=== PATIENT | female | born 1945 | race Two or more races ===

== ENCOUNTER 2022-04-07 15:02 | Emergency (ER) | payer OTHER ==
[2022-04-07 16:11] VITALS: TEMP 98; BMI 25.4
[2022-04-07] MEDS ORDERED: ACETAMINOPHEN 500 MG TABLET (FP) PO ONE (16:53)
[2022-04-07] MEDS: ALBUTEROL SO4 2.5/IPRATROPIUM 0.5 INH SOL 3 ML VIAL.NEB. NEB SCH ×3 (17:15→18:06)
[2022-04-07] MEDS ORDERED: ALBUTEROL SO4 2.5/IPRATROPIUM 0.5 INH SOL 3 ML VIAL.NEB. NEB ONE (17:33)
[2022-04-07 17:38] LABS: HEMATOCRIT 35.4 % (32.4-45.2); HEMOGLOBIN 11.6 GM/dL (10.7-15.3); MCH 22.9 pg (25.7-33.7); MCHC 32.7 g/dl (32.0-36.0); MEAN CELL VOLUME 69.9 fl (80-96); MEAN PLT VOLUME 8.5 fl (7.5-11.1); PLATELET COUNT 251 10^3/uL (134-434); RBC 5.06 M/mm3 (3.60-5.2); RDW 17.2 % (11.6-15.6); WHITE BLOOD COUNT 5.4 K/mm3 (4.0-10.0)
[2022-04-07] MEDS ORDERED: ACETAMINOPHEN 500 MG TABLET (FP) ONE (17:38)
[2022-04-07 17:43] LABS: EPI CELLS 17 /uL (0-25.1); HYALINE CASTS 1 /uL (0-3.1); PH,URINE 5.5 (5.0-8.0); URINE APPEARANCE CLEAR; URINE BACTERIA >9,000 /uL (0-1359); URINE BILIRUBIN NEGATIVE (NEGATIVE); URINE COLOR YELLOW; URINE GLUCOSE (UA) NEGATIVE (NEGATIVE); URINE KETONE TRACE (NEGATIVE); URINE LEUK ESTERASE 1+ (NEGATIVE); URINE NITRITE POSITIVE (NEGATIVE); URINE PROTEIN NEGATIVE (NEGATIVE); URINE RBC 16 /uL (0-23.9); URINE UROBILINOGEN 0.2 mg/dL (0.2-1.0); URINE WBC 34 /uL (0-25.8)
[2022-04-07 18:00] LABS: CALCIUM 8.7 mg/dL (8.5-10.1)
[2022-04-07 18:01] LABS: ALBUMIN 3.4 g/dl (3.4-5.0); BLOOD UREA NITROGEN 12.3 mg/dL (7-18); MAGNESIUM 2.4 mg/dL (1.8-2.4)
[2022-04-07 18:04] LABS: CREATININE 0.5 mg/dL (0.55-1.3)
[2022-04-07 18:05] LABS: BILIRUBIN,TOTAL 0.2 mg/dL (0.2-1); TOT PROT 7.1 g/dl (6.4-8.2)
[2022-04-07] MEDS ORDERED: CEFTRIAXONE 1,000 MG in DEXTROSE 5%-WATER - 50 ML IVPB ONE (18:32)
[2022-04-07] MEDS ORDERED: CEFTRIAXONE 1 GM/50 ML BAG ONE (19:08)
[2022-04-07 19:49] VITALS: BP 113/52; PULSE 92
== END 2022-04-07 20:52 | disposition home or self-care (01) ==
LOC: JER 15:02
PROC: 3E0F7GC Introduction of Other Therapeutic Substance into Respiratory Tract, Via Natural or Artificial Opening (ICD-10-PCS; principal; 2022-04-07)
PROC: 3E03329 Introduction of Other Anti-infective into Peripheral Vein, Percutaneous Approach (ICD-10-PCS; 2022-04-07)
DX: J45.901 Unspecified asthma with (acute) exacerbation (principal); N30.90 Cystitis, unspecified without hematuria; N39.0 Urinary tract infection, site not specified
CPT/HCPCS: 0241U-QW; 36415; 71045-TC-FY; 74177-TC; 80053; 81003; 83605; 83690; 83735; 84484; 85027; 87086; 87186; 93005; 93010; 99285-25; Q9967

== ENCOUNTER 2022-08-21 16:15 | Inpatient (IN) | payer OTHER ==
[2022-08-21 16:32] VITALS: BMI 27.3
[2022-08-21] MEDS ORDERED: ALBUTEROL SO4 2.5/IPRATROPIUM 0.5 INH SOL 3 ML VIAL.NEB. NEB ONE (17:21)
[2022-08-21] MEDS ORDERED: DEXAMETHASONE SOD PHOSPHATE 10 MG/1 ML VIAL IVPUSH ONE (17:30)
[2022-08-21] MEDS ORDERED: DEXAMETHASONE SOD PHOSPHATE 10 MG/1 ML VIAL ONE (17:51)
[2022-08-21 18:10] LABS: BASO % 1.2 % (0-2.0); EOS % 13.7 % (0-4.5); HEMATOCRIT 34.5 % (32.4-45.2); LYMPH % 49.5 % (8-40); MCH 22.3 pg (25.7-33.7); MCHC 31.9 g/dl (32.0-36.0); MEAN CELL VOLUME 69.9 fl (80-96); MEAN PLT VOLUME 8.3 fl (7.5-11.1); MONO % 7.6 % (3.8-10.2); PLATELET COUNT 252 10^3/uL (134-434); RBC 4.93 M/mm3 (3.60-5.2); RDW 16.5 % (11.6-15.6); WHITE BLOOD COUNT 5.8 K/mm3 (4.0-10.0)
[2022-08-21] MEDS ORDERED: ALBUTEROL SO4 0.083% IH SOL 2.5 MG/3 ML VIAL.NEB. NEB ONE ×2 (18:22→18:31)
[2022-08-21 19:06] LABS: ACTIVATED PTT 31.8 SECONDS (25.2-36.5); INR 1.2 (0.83-1.09); PROTHROMBIN TIME (PATIENT) 13.8 SEC (9.7-13.0)
[2022-08-21 19:34] LABS: CALCIUM 9.2 mg/dL (8.5-10.1)
[2022-08-21 19:35] LABS: ALBUMIN 3.7 g/dl (3.4-5.0); BLOOD UREA NITROGEN 11.7 mg/dL (7-18)
[2022-08-21 19:38] LABS: CREATININE 0.7 mg/dL (0.55-1.3)
[2022-08-21 19:39] LABS: TOT PROT 7.2 g/dl (6.4-8.2)
[2022-08-21 19:40] LABS: BILIRUBIN,TOTAL 0.2 mg/dL (0.2-1)
[2022-08-21] MEDS ORDERED: DOCUSATE SODIUM 100 MG CAPSULE (FP) PO PRN (23:54)
[2022-08-21] MEDS ORDERED: ACETAMINOPHEN 325 MG TABLET (FP) PO PRN (23:54)
[2022-08-22 05:05] LABS: MAGNESIUM 1.9 mg/dL (1.8-2.4)
[2022-08-22] MEDS ORDERED: ALBUTEROL SO4 HFA INHALER IH PRN (07:59)
[2022-08-22] MEDS ORDERED: ALBUTEROL SO4 0.083% IH SOL 2.5 MG/3 ML VIAL.NEB. NEB PRN (08:06)
[2022-08-22 08:10] LABS: BASO % 0.4 % (0-2.0); HEMATOCRIT 37.2 % (32.4-45.2); HEMOGLOBIN 11.4 GM/dL (10.7-15.3); LYMPH % 14.7 % (8-40); MCH 21.6 pg (25.7-33.7); MCHC 30.8 g/dl (32.0-36.0); MEAN CELL VOLUME 70.2 fl (80-96); MEAN PLT VOLUME 8.8 fl (7.5-11.1); MONO % 1.8 % (3.8-10.2); NEUT % 83.1 % (42.8-82.8); PLATELET COUNT 299 10^3/uL (134-434); RDW 16.3 % (11.6-15.6); WHITE BLOOD COUNT 5.7 K/mm3 (4.0-10.0)
[2022-08-22 09:08] LABS: CALCIUM 9.6 mg/dL (8.5-10.1); CREATININE 0.8 mg/dL (0.55-1.3)
[2022-08-22] MEDS ORDERED: ENOXAPARIN NA (PORCINE) 40 MG/0.4 ML DISP.SYRIN SQ SCH (10:00)
[2022-08-22] MEDS ORDERED: FLUTICASONE/UMECLIDIN/VILANTER(200-62.5-25 TRELEGY ELLIPTA) INAHLER IH SCH (10:00)
[2022-08-22 10:28] LABS: ANISOCYTOSIS 2+; MACROCYTOSIS 0
[2022-08-22] MEDS: methylPREDNISolone NA SUCC 40 MG/1 ML VIAL IVPUSH SCH ×2 (11:45→17:25)
[2022-08-22] MEDS: PANTOPRAZOLE SODIUM 40 MG VIAL IVPUSH SCH ×2 (11:45→22:33)
[2022-08-22] MEDS: SENNOSIDES/DOCUSATE COMBO (SENNA PLUS) TABLET (UD) PO SCH ×2 (11:45→22:33)
[2022-08-22] MEDS: OXYBUTYNIN CHLORIDE 5 MG TABLET PO SCH ×2 (11:45→22:33)
[2022-08-22] MEDS: ALBUTEROL SO4 2.5/IPRATROPIUM 0.5 INH SOL 3 ML VIAL.NEB. NEB SCH (20:32)
[2022-08-22] MEDS: MONTELUKAST NA 10 MG TABLET PO SCH (22:33)
[2022-08-22] MEDS: BUDESONIDE/FORMETEROL FUMARATE 160/4.5 mcg INHALER IH SCH (22:33)
[2022-08-23] MEDS: methylPREDNISolone NA SUCC 40 MG/1 ML VIAL IVPUSH SCH ×3 (02:00→17:53)
[2022-08-23] MEDS: ALBUTEROL SO4 2.5/IPRATROPIUM 0.5 INH SOL 3 ML VIAL.NEB. NEB SCH ×4 (08:14→20:00)
[2022-08-23] MEDS: SENNOSIDES/DOCUSATE COMBO (SENNA PLUS) TABLET (UD) PO SCH ×2 (09:31→21:33)
[2022-08-23] MEDS: OXYBUTYNIN CHLORIDE 5 MG TABLET PO SCH ×2 (09:31→21:33)
[2022-08-23] MEDS: PANTOPRAZOLE SODIUM 40 MG VIAL IVPUSH SCH ×2 (09:32→21:33)
[2022-08-23] MEDS: BUDESONIDE/FORMETEROL FUMARATE 160/4.5 mcg INHALER IH SCH ×2 (10:59→21:33)
[2022-08-23] MEDS: MONTELUKAST NA 10 MG TABLET PO SCH (21:33)
[2022-08-24] MEDS: methylPREDNISolone NA SUCC 40 MG/1 ML VIAL IVPUSH SCH (01:03)
[2022-08-24] MEDS: ALBUTEROL SO4 2.5/IPRATROPIUM 0.5 INH SOL 3 ML VIAL.NEB. NEB SCH ×4 (08:15→20:36)
[2022-08-24] MEDS: BUDESONIDE/FORMETEROL FUMARATE 160/4.5 mcg INHALER IH SCH ×2 (09:37→21:52)
[2022-08-24] MEDS: SENNOSIDES/DOCUSATE COMBO (SENNA PLUS) TABLET (UD) PO SCH ×2 (09:37→21:52)
[2022-08-24] MEDS: OXYBUTYNIN CHLORIDE 5 MG TABLET PO SCH ×2 (09:37→21:52)
[2022-08-24] MEDS: predniSONE 10 MG TABLET (UD) PO SCH ×2 (10:56→21:52)
[2022-08-24] MEDS: MONTELUKAST NA 10 MG TABLET PO SCH (21:52)
[2022-08-25] MEDS: ALBUTEROL SO4 2.5/IPRATROPIUM 0.5 INH SOL 3 ML VIAL.NEB. NEB SCH ×3 (07:45→15:30)
[2022-08-25] MEDS: BUDESONIDE/FORMETEROL FUMARATE 160/4.5 mcg INHALER IH SCH (10:58)
[2022-08-25] MEDS: SENNOSIDES/DOCUSATE COMBO (SENNA PLUS) TABLET (UD) PO SCH (10:58)
[2022-08-25] MEDS: OXYBUTYNIN CHLORIDE 5 MG TABLET PO SCH (10:58)
[2022-08-25] MEDS: predniSONE 10 MG TABLET (UD) PO SCH (10:58)
[2022-08-25 13:01] VITALS: BP 125/69; PULSE 80; RESP 20; TEMP 98.1
[2022-08-25] MEDS ORDERED: guaiFENesin/D-METHORPHAN HB 10 ML UNIT-DOSE CUPS PO PRN (15:22)
[2022-08-25] MEDS ORDERED: predniSONE 20 MG TABLET (UD) PO SCH (15:23)
== END 2022-08-25 18:41 | disposition home or self-care (01) | DRG 141 ==
LOC: JER 16:15 → JERBED 18:24 → J2W 23:51 → OBSVTOIN 08-23 10:11
PROVIDERS: ADMIT Internal Medicine; ATTEND Family Medicine
DX: J45.901 Unspecified asthma with (acute) exacerbation (principal); R10.13 Epigastric pain; R09.02 Hypoxemia; I51.7 Cardiomegaly; M19.90 Unspecified osteoarthritis, unspecified site
CPT/HCPCS: 0241U-QW; 36415; 71045-TC-FY; 71250-TC; 80048; 80053; 83690; 83735; 84484; 85025; 85379; 85610; 85730; 93005; 93010; 93306-TC; 93970-TC; 94640; 94761; 99285-25; G0378; J1100

== ENCOUNTER 2022-08-27 18:37 | Emergency (ER) | payer OTHER ==
[2022-08-27] MEDS ORDERED: LIDOCAINE PATCH REMOVAL MC SCH (22:00)
[2022-08-27 22:05] VITALS: BP 127/79; PULSE 68; RESP 20; TEMP 98.1; BMI 24.7
[2022-08-27] MEDS ORDERED: LIDOCAINE 5% TOPICAL PATCH TP ONE (22:55)
[2022-08-27] MEDS ORDERED: KETOROLAC TROMETHAMINE 15 MG/ML VIAL IVPUSH ONE (22:55)
[2022-08-27] MEDS ORDERED: METHOCARBAMOL 500 MG TABLET PO ONE (22:55)
[2022-08-27] MEDS ORDERED: KETOROLAC TROMETHAMINE 30 MG/1 ML VIAL IM ONE (23:40)
[2022-08-27] MEDS ORDERED: KETOROLAC TROMETHAMINE 15 MG/ML VIAL ONE (23:41)
[2022-08-27] MEDS ORDERED: METHOCARBAMOL 500 MG TABLET ONE (23:41)
[2022-08-27] MEDS ORDERED: LIDOCAINE 5% TOPICAL PATCH ONE (23:41)
[2022-08-28 00:43] LABS: PH,URINE 5.5 (5.0-8.0); URINE APPEARANCE CLEAR; URINE BILIRUBIN NEGATIVE (NEGATIVE); URINE COLOR YELLOW; URINE GLUCOSE (UA) NEGATIVE (NEGATIVE); URINE KETONE NEGATIVE (NEGATIVE); URINE LEUK ESTERASE TRACE (NEGATIVE); URINE NITRITE NEGATIVE (NEGATIVE); URINE PROTEIN NEGATIVE (NEGATIVE); URINE UROBILINOGEN 0.2 mg/dL (0.2-1.0)
[2022-08-28 01:03] LABS: EPI CELLS 2+ /uL (0-25.1); URINE RBC 0-3 /uL (0-23.9); URINE WBC 0-3 /uL (0-25.8)
[2022-08-28 01:04] LABS: URINE BACTERIA TRACE /uL (0-1359)
== END 2022-08-28 02:06 | disposition home or self-care (01) ==
LOC: JER 18:37
PROC: 3E0233Z Introduction of Anti-inflammatory into Muscle, Percutaneous Approach (ICD-10-PCS; principal; 2022-08-27)
DX: M54.50 Low back pain, unspecified (principal)
CPT/HCPCS: 81003; 87086; 99284-25